=== PATIENT | female | born 1995 | race African-American/Black ===

== ENCOUNTER 2018-11-24 15:40 | Emergency (ER) | payer OTHER ==
[2018-11-24] MEDS ORDERED: LORazepam 2 MG/ML SDV IVPUSH ONE (16:01)
[2018-11-24] MEDS ORDERED: diphenhydrAMINE 50 MG/ML SDV IVPUSH ONE (16:01)
[2018-11-24] MEDS ORDERED: Sodium Chloride 0.9% 1,000 ML IV ONE (16:01)
[2018-11-24] MEDS ORDERED: Promethazine 25 MG/ML SDV IM ONE (16:02)
--- NOTE | 2018-11-24 16:03 | EDM.PDOC ---
ED HPI GENERAL MEDICAL PROBLEM - General Chief Complaint: ENT Problem Stated Complaint: MIGRAINE Time Seen by Provider: 11/24/18 16:02 Source of Information: Reports: Patient - History of Present Illness INITIAL COMMENTS - FREE TEXT/NARRATIVE: HISTORY AND PHYSICAL: History of present illness: []Patient 17 weeks presents with migraine, she has history of migraine early treated with aspirin unable to take aspirin due to complain of 5 out of 10 right unilateral headache mild nausea consistent with usual headache no fever vomiting chills sweats Review of systems: As per history of present illness and below otherwise all systems reviewed and negative. Past medical history: As per history of present illness and as reviewed below otherwise noncontributory. Surgical history: As per history of present illness and as reviewed below otherwise noncontributory. Social history: No reported history of drug or alcohol abuse. Family history: As per history of present illness and as reviewed below otherwise noncontributory. Physical exam: HEENT: Atraumatic, normocephalic, pupils reactive, negative for conjunctival pallor or scleral icterus, mucous membranes moist, throat clear, neck supple, nontender, trachea midline. Lungs: Clear to auscultation, breath sounds equal bilaterally, chest nontender. Heart: S1S2, regular, negative for clicks, rubs, or JVD. Abdomen: Soft, nondistended, nontender. Negative for masses or hepatosplenomegaly. Negative for costovertebral tenderness. Pelvis: Stable nontender. Genitourinary: Deferred. Rectal: Deferred. Extremities: Atraumatic, negative for cords or calf pain. Neurovascular unremarkable. Neuro: Awake, alert, oriented. Cranial nerves II through XII unremarkable. Cerebellum unremarkable. Motor and sensory unremarkable throughout. Exam nonfocal. Diagnostics: [UA ]Standard OB lab on file this month Therapeutics: [Normal saline Phenergan Benadryl Ativan ] Impression: [ migraine- improved 17 week ] Definitive disposition and diagnosis as appropriate pending reevaluation and review of above. headache Pain Score (Numeric/FACES): 7 - Related Data Allergies Allergy/AdvReac Type Severity Reaction Status Date / Time No Known Allergies Allergy Verified 11/24/18 16:06 Home Meds: Home Meds Pnv No.95/Ferrous Fum/Folic AC [ Caplet] 1 each PO DAILY 11/24/18 [ History] ED ROS GENERAL - Review of Systems Review Of Systems: See Below ED EXAM, GENERAL - Physical Exam Exam: See Below Course - Vital Signs Last Recorded V/S: Last Vital Signs Temp 97.3 F 11/24/18 16:07 Pulse 96 11/24/18 16:07 Resp 18 11/24/18 16:07 BP 117/56 L 11/24/18 16:07 Pulse Ox 97 11/24/18 16:07 - Orders/Labs/Meds Orders: Active Orders 24 hr Category Date Time Status UA RFX ABRAHAM AND CULT IF INDIC [URIN] Stat Lab 11/24/18 16:10 Ordered Sodium Chloride 0.9% [Normal Saline] 1,000 ml Med 11/24/18 16:01 Active IV STAT Medication Orders Sodium Chloride (Normal Saline) 1,000 mls @ 999 mls/hr IV STAT ONE Stop: 11/24/18 17:01 Last Admin: 11/24/18 16:27 Dose: 999 mls/hr Meds: Medications Generic Name Dose Route Start Last Admin Trade Name Freq PRN Reason Stop Dose Admin Sodium Chloride 1,000 mls @ 999 mls/hr 11/24/18 16:01 11/24/18 16:27 Normal Saline IV 11/24/18 17:01 999 mls/hr STAT ONE Administration Discontinued Medications Generic Name Dose Route Start Last Admin Trade Name Freq PRN Reason Stop Dose Admin Diphenhydramine HCl 50 mg 11/24/18 16:01 11/24/18 16:29 Benadryl IVPUSH 11/24/18 16:02 50 mg ONETIME ONE Administration Lorazepam 1 mg 11/24/18 16:01 11/24/18 16:31 Ativan IVPUSH 11/24/18 16:02 1 mg ONETIME ONE Administration Promethazine HCl 25 mg 11/24/18 16:02 11/24/18 16:32 Phenergan IM 11/24/18 16:03 25 mg ONETIME ONE Administration Departure - Departure Time of Disposition: 17:01 Disposition: Home, Self-Care 01 Condition: Good Clinical Impression: Headache - Discharge Information Referrals: PCP,None [Primary Care Provider] - Forms: ED Department Discharge Additional Instructions: No driving after medication Return if symptoms persist or worsen Follow-up with OB as scheduled [facility] [address] [place], [place] [id number] The following information is given to patients seen in the emergency department who are being discharged to home. This information is to outline your options for follow-up care. We provide all patients seen in our emergency department with a follow-up referral. The need for follow-up, as well as the timing and circumstances, are variable depending upon the specifics of your emergency department visit. If you don't have a primary care physician on staff, we will provide you with a referral. We always advise you to contact your personal physician following an emergency department visit to inform them of the circumstance of the visit and for follow-up with them and/or the need for any referrals to a consulting specialist. The emergency department will also refer you to a specialist when appropriate. This referral assures that you have the opportunity for follow-up care with a specialist. All of these measure are taken in an effort to provide you with optimal care, which includes your follow-up. Under all circumstances we always encourage you to contact your private physician who remains a resource for coordinating your care. When calling for follow-up care, please make the office aware that this follow-up is from your recent emergency room visit. If for any reason you are refused follow-up, please contact the [facility] emergency department at and asked to speak to the emergency department charge nurse. - My Orders Last 24 Hours: My Active Orders 11/24/18 16:01 Sodium Chloride 0.9% [Normal Saline] 1,000 ml IV STAT 11/24/18 16:10 UA RFX ABRAHAM AND CULT IF INDIC [URIN] Stat - Assessment/Plan Last 24 Hours: My Active Orders 11/24/18 16:01 Sodium Chloride 0.9% [Normal Saline] 1,000 ml IV STAT 11/24/18 16:10 UA RFX ABRAHAM AND CULT IF INDIC [URIN] Stat
== END 2018-11-24 17:55 | disposition home or self-care (01) ==
LOC: MW.ED 15:40
DX: O99.352 Diseases of the nervous system complicating pregnancy, second trimester (principal); G43.909 Migraine, unspecified, not intractable, without status migrainosus; Z3A.17 17 weeks gestation of pregnancy
CPT/HCPCS: 81001; 87086; 96361; 96372; 96374; 96375; 99284; J1200; J2060; J2550; J7040; 99283

== ENCOUNTER 2018-12-19 06:21 | Emergency (ER) | payer SELFPAY ==
[2018-12-19] MEDS ORDERED: Sodium Chloride 0.9% 1,000 ML IV ONE (06:45)
--- NOTE | 2018-12-19 06:46 | EDM.PDOC ---
ED HPI GENERAL MEDICAL PROBLEM - General Chief Complaint: Cardiovascular Problem Stated Complaint: HEART RATE HIGH, 21 WEEKS Time Seen by Provider: 12/19/18 06:44 - History of Present Illness INITIAL COMMENTS - FREE TEXT/NARRATIVE: HISTORY AND PHYSICAL: History of present illness: Patient's 23-year-old black female was approximately 21 weeks presents with concern of palpitations but no chest pain abdominal pain abdominal cramping vaginal bleeding discharge or other concerns she denies shortness of breath. Review of systems: As per history of present illness and below otherwise all systems reviewed and negative. Past medical history: As per history of present illness and as reviewed below otherwise noncontributory. Surgical history: As per history of present illness and as reviewed below otherwise noncontributory. Social history: No reported history of drug or alcohol abuse. Family history: As per history of present illness and as reviewed below otherwise noncontributory. Physical exam: HEENT: Atraumatic, normocephalic, pupils reactive, negative for conjunctival pallor or scleral icterus, mucous membranes moist, throat clear, neck supple, nontender, trachea midline. Lungs: Clear to auscultation, breath sounds equal bilaterally, chest nontender. Heart: S1S2, regular, negative for clicks, rubs, or JVD. Abdomen: Soft, abdomen with gravid uterus consistent with dates Negative for masses or hepatosplenomegaly. Negative for costovertebral tenderness. Pelvis: Stable nontender. Genitourinary: Deferred. Rectal: Deferred. Extremities: Atraumatic, negative for cords or calf pain. Neurovascular unremarkable. Neuro: Awake, alert, oriented. Cranial nerves II through XII unremarkable. Cerebellum unremarkable. Motor and sensory unremarkable throughout. Exam nonfocal. Diagnostics: CBC CMP EKG heart tones Therapeutics: monitoring tech 1 L saline Impression: 1 palpitations #2 second trimester Definitive disposition and diagnosis as appropriate pending reevaluation and review of above. no pain Pain Score (Numeric/FACES): 0 - Related Data Allergies Allergy/AdvReac Type Severity Reaction Status Date / Time No Known Allergies Allergy Verified 12/19/18 06:26 Home Meds: Home Meds Pnv No.95/Ferrous Fum/Folic AC [ Caplet] 1 each PO DAILY 11/24/18 [ History] Past Medical History - Past Health History Medical/Surgical History: Denies Medical/Surgical History HEENT History: Reports: None Cardiovascular History: Reports: None Respiratory History: Reports: None Gastrointestinal History: Reports: None Genitourinary History: Reports: None MEDICAL CARE EVALUATION SPECIALIST History: Reports: None Musculoskeletal History: Reports: None Neurological History: Reports: None Psychiatric History: Reports: None Endocrine/Metabolic History: Reports: None Hematologic History: Reports: None Immunologic History: Reports: None Oncologic (Cancer) History: Reports: None Dermatologic History: Reports: None - Infectious Disease History Infectious Disease History: Reports: Chicken Pox - Past Surgical History Head Surgeries/Procedures: Reports: None Social & Family History - Family History Family Medical History: Noncontributory - Tobacco Use Smoking Status *Q: Never Smoker - Recreational Drug Use Recreational Drug Use: No ED ROS GENERAL - Review of Systems Review Of Systems: ROS reveals no pertinent complaints other than HPI. ED EXAM, GENERAL - Physical Exam Exam: See Below (dictation) Course - Vital Signs Last Recorded V/S: Last Vital Signs Temp 36.6 C 12/19/18 06:27 Pulse 103 H 12/19/18 06:27 Resp 20 12/19/18 06:27 BP 135/67 12/19/18 06:27 Pulse Ox 98 12/19/18 06:27 - Orders/Labs/Meds Orders: Active Orders 24 hr Category Date Time Status EKG Documentation Completion [RC] STAT Care 12/19/18 06:35 Active Heart Tones [RC] ASDIRECTED Care 12/19/18 06:36 Active Sodium Chloride 0.9% [Normal Saline] 1,000 ml Med 12/19/18 06:45 Active IV .Bolus Medication Orders Sodium Chloride (Normal Saline) 1,000 mls @ 999 mls/hr IV .Bolus ONE Stop: 12/19/18 07:45 Last Admin: 12/19/18 07:01 Dose: 999 mls/hr Labs: Laboratory Tests 12/19/18 12/19/18 Range/Units 06:42 06:42 WBC 8.20 (4.0-11.0) K/uL RBC 3.92 L (4.30-5.90) M/uL Hgb 10.1 L (12.0-16.0) g/dL Hct 32.0 L (36.0-46.0) % MCV 81.6 (80.0-98.0) fL MCH 25.8 L (27.0-32.0) pg MCHC 31.6 (31.0-37.0) g/dL RDW Std Deviation 45.4 (28.0-62.0) fl RDW Coeff of Aquiles 15 (11.0-15.0) % Plt Count 279 (150-400) K/uL MPV 9.60 (7.40-12.00) fL Neut % (Auto) 59.2 (48.0-80.0) % Lymph % (Auto) 32.6 (16.0-40.0) % [place] % (Auto) 7.6 (0.0-15.0) % Eos % (Auto) 0.4 (0.0-7.0) % Baso % (Auto) 0.2 (0.0-1.5) % Neut # (Auto) 4.9 (1.4-5.7) K/uL Lymph # (Auto) 2.7 H (0.6-2.4) K/uL [place] # (Auto) 0.6 (0.0-0.8) K/uL Eos # (Auto) 0.0 (0.0-0.7) K/uL Baso # (Auto) 0.0 (0.0-0.1) K/uL Nucleated RBC % 0.2 /100WBC Nucleated RBCs # 0 K/uL Sodium 138 (136-145) mmol/L Potassium 3.5 (3.5-5.1) mmol/L Chloride 104 (98-107) mmol/L Carbon Dioxide 24.6 (21.0-32.0) mmol/L BUN 4 L (7.0-18.0) mg/dL Creatinine 0.5 L (0.6-1.0) mg/dL Est Cr Clr Drug Dosing 157.46 mL/min Estimated GFR (MDRD) > 60.0 ml/min Glucose 114 H (74-106) mg/dL Calcium 8.7 (8.5-10.1) mg/dL Meds: Medications Generic Name Dose Route Start Last Admin Trade Name Freq PRN Reason Stop Dose Admin Sodium Chloride 1,000 mls @ 999 mls/hr 12/19/18 06:45 12/19/18 07:01 Normal Saline IV 12/19/18 07:45 999 mls/hr .Bolus ONE Administration Departure - Departure Time of Disposition: 07:37 Disposition: Home, Self-Care 01 Condition: Good Clinical Impression: Second trimester , Encounter for medical screening examination, Palpitations Referrals: PCP,None [Primary Care Provider] - Forms: ED Department Discharge Additional Instructions: The following information is given to patients seen in the emergency department who are being discharged to home. This information is to outline your options for follow-up care. We provide all patients seen in our emergency department with a follow-up referral. The need for follow-up, as well as the timing and circumstances, are variable depending upon the specifics of your emergency department visit. If you don't have a primary care physician on staff, we will provide you with a referral. We always advise you to contact your personal physician following an emergency department visit to inform them of the circumstance of the visit and for follow-up with them and/or the need for any referrals to a consulting specialist. The emergency department will also refer you to a specialist when appropriate. This referral assures that you have the opportunity for followup care with a specialist. All of these measure are taken in an effort to provide you with optimal care, which includes your followup. Under all circumstances we always encourage you to contact your private physician who remains a resource for coordinating your care. When calling for followup care, please make the office aware that this follow-up is from your recent emergency room visit. If for any reason you are refused follow-up, please contact the [facility] emergency department at and asked to speak to the emergency department charge nurse. Follow-up primary medical doctor and MEDICAL CARE EVALUATION SPECIALIST he has discussed return as needed as discussed - My Orders Last 24 Hours: My Active Orders 12/19/18 06:35 EKG Documentation Completion [RC] STAT 12/19/18 06:36 Heart Tones [RC] ASDIRECTED 12/19/18 06:45 Sodium Chloride 0.9% [Normal Saline] 1,000 ml IV .Bolus - Assessment/Plan Last 24 Hours: My Active Orders 12/19/18 06:35 EKG Documentation Completion [RC] STAT 12/19/18 06:36 Heart Tones [RC] ASDIRECTED 12/19/18 06:45 Sodium Chloride 0.9% [Normal Saline] 1,000 ml IV .Bolus
[2018-12-19 07:00] LABS: BLOOD UREA NITROGEN,BUN 4 mg/dL (7.0-18.0); CARBON DIOXIDE,CO2 24.6 mmol/L (21.0-32.0); CHLORIDE,CL 104 mmol/L (98-107); GLUCOSE RANDOM 114 mg/dL (74-106); POTASSIUM,K 3.5 mmol/L (3.5-5.1); SODIUM,NA 138 mmol/L (136-145)
== END 2018-12-19 07:58 | disposition home or self-care (01) ==
LOC: MW.ED 06:21
DX: O99.89 Other specified diseases and conditions complicating pregnancy, childbirth and the puerperium (principal); R00.2 Palpitations; Z3A.21 21 weeks gestation of pregnancy
CPT/HCPCS: 36415; 80048; 85025; 93005; 96360; 99285; J7040

== ENCOUNTER 2019-05-08 09:31 | Inpatient (IN) | payer SELFPAY ==
[2019-05-08] MEDS ORDERED: Tranexamic Acid 1,000 MG in Sodium Chloride 0.9% 100 ML IV PRN (14:55)
[2019-05-08] MEDS ORDERED: Sodium Chloride 0.9% 2.5 ML Syringe FLUSH PRN (14:55)
[2019-05-08] MEDS ORDERED: Sodium Chloride 0.9% 10 ML SDV IV PRN (14:55)
[2019-05-08] MEDS ORDERED: Carboprost Tromethamine 250 MCG/1 ML Amp IM PRN (14:55)
[2019-05-08] MEDS ORDERED: Misoprostol 25 MCG (1/4 of 100 MCG) Tab VAG PRN (14:55)
[2019-05-08] MEDS ORDERED: Water For Irrigation,Sterile 1,000 ML Container IRR PRN (14:55)
[2019-05-08] MEDS ORDERED: Ondansetron 4 MG/2 ML SDV IVPUSH PRN (14:55)
[2019-05-08] MEDS ORDERED: Terbutaline 1 MG/ML SDV SUBCUT PRN (14:55)
[2019-05-08] MEDS ORDERED: Misoprostol 200 MCG Tab PO PRN (14:55)
[2019-05-08] MEDS ORDERED: Lidocaine 1% 50 ML MDV INJECT PRN (14:55)
[2019-05-08] MEDS ORDERED: Sodium Chloride 0.9% 10 ML Syringe FLUSH PRN (14:55)
[2019-05-08] MEDS ORDERED: Methylergonovine 0.2 MG/1 ML Amp IM PRN (14:55)
[2019-05-08] MEDS ORDERED: Oxytocin/0.9 % Sodium Chloride 30 UNIT/500 ML BAG IV SCH ×2 (15:00)
[2019-05-08] MEDS: Lactated Ringers 1,000 ML IV SCH ×2 (16:20→20:27)
[2019-05-08] MEDS: Butorphanol 1 MG/ML SDV IVPUSH PRN ×2 (21:45→23:29)
--- NOTE | 2019-05-09 02:27 | PCM.PREANE ---
Preanesthetic Assessment - Anesthesia/Transfusion/Family Hx Anesthesia History: No Prior Anesthesia Family History of Anesthesia Reaction: No Transfusion History: No Prior Transfusion(s) - Review of Systems General: No Symptoms Pulmonary: No Symptoms Cardiovascular: No Symptoms Gastrointestinal: No Symptoms Neurological: No Symptoms Other: Reports: None - Physical Assessment Height: 5 ft 5 in Weight: 79.832 kg ASA Class: 2 Mental Status: Alert & Oriented x3 Airway Class: Mallampati = 2 Dentition: Reports: Normal Dentition Thyro-Mental Finger Breadths: 3 Mouth Opening Finger Breadths: 3 ROM/Head Extension: Full Lungs: Clear to Auscultation, Normal Respiratory Effort Cardiovascular: Regular Rate, Regular Rhythm - Lab Values: Laboratory Last Values WBC 9.34 K/uL (4.0-11.0) 05/08/19 16:25 RBC 4.69 M/uL (4.30-5.90) 05/08/19 16:25 Hgb 9.3 g/dL (12.0-16.0) L 05/08/19 16:25 Hct 31.3 % (36.0-46.0) L 05/08/19 16:25 MCV 66.7 fL (80.0-98.0) L 05/08/19 16:25 MCH 19.8 pg (27.0-32.0) L 05/08/19 16:25 MCHC 29.7 g/dL (31.0-37.0) L 05/08/19 16:25 RDW Std Deviation 50.2 fl (28.0-62.0) 05/08/19 16:25 RDW Coeff of Aquiles 22 % (11.0-15.0) H 05/08/19 16:25 Plt Count 208 K/uL (150-400) 05/08/19 16:25 MPV fL (7.40-12.00) 05/08/19 16:25 Blood Type O NEGATIVE 05/08/19 16:25 Antibody Screen NEGATIVE 05/08/19 16:25 Crossmatch See Detail 05/08/19 16:25 - Allergies Allergies/Adverse Reactions: Allergies Allergy/AdvReac Type Severity Reaction Status Date / Time No Known Allergies Allergy Verified 05/08/19 14:36 - Acknowledgements Anesthesia Type Planned: Epidural Pt an Appropriate Candidate for the Planned Anesthesia: Yes Alternatives and Risks of Anesthesia Discussed w Pt/Guardian: Yes Pt/Guardian Understands and Agrees with Anesthesia Plan: Yes PreAnesthesia Questionnaire - Past Health History Medical/Surgical History: Denies Medical/Surgical History HEENT History: Reports: None Cardiovascular History: Reports: None Respiratory History: Reports: None Gastrointestinal History: Reports: GERD Genitourinary History: Reports: None TOWER EQUIPMENT REPAIRER History: Reports: None, : 1 Para: 0 LMP (Approximate): Musculoskeletal History: Reports: None Neurological History: Reports: None Psychiatric History: Reports: None Endocrine/Metabolic History: Reports: None Hematologic History: Reports: Anemia Immunologic History: Reports: None Oncologic (Cancer) History: Reports: None Dermatologic History: Reports: None - Infectious Disease History Infectious Disease History: Reports: Chicken Pox - Past Surgical History Head Surgeries/Procedures: Reports: None - SUBSTANCE USE Smoking Status *Q: Never Smoker Recreational Drug Use History: No - HOME MEDS Home Medications: Home Meds Pnv No.95/Ferrous Fum/Folic AC [ Caplet] 1 each PO DAILY 11/24/18 [ History] - CURRENT (IN HOUSE) MEDS Current Meds: Current Medications Butorphanol Tartrate (Stadol) 1 mg IVPUSH Q1H PRN PRN Reason: Pain Last Admin: 05/08/19 23:29 Dose: 1 mg Carboprost Tromethamine (Hemabate Ds) 250 mcg IM ASDIRECTED PRN PRN Reason: Post Hemorrhage Lactated Ringer's (Ringers, Lactated) 1,000 mls @ 150 mls/hr IV ASDIRECTED DAMIAN Last Admin: 05/08/19 20:27 Dose: 150 mls/hr Oxytocin/Sodium Chloride (Oxytocin 30 Unit/500 Ml-Ns) 30 unit in 500 mls @ 500 mls/hr IV TITRATE DAMIAN Oxytocin/Sodium Chloride (Oxytocin 30 Unit/500 Ml-Ns) 30 unit in 500 mls @ 2 mls/hr IV TITRATE DAMIAN; Protocol Last Titration: 05/09/19 00:35 Dose: 0 munits/min, 0 mls/hr Tranexamic Acid 1,000 mg/ (Sodium Chloride) 110 mls @ 660 mls/hr IV ONETIME PRN PRN Reason: Bleeding Lidocaine HCl (Xylocaine 1%) 50 ml INJECT ONETIME PRN PRN Reason: Laceration repair Methylergonovine Maleate (Methergine) 0.2 mg IM ASDIRECTED PRN PRN Reason: Post Hemorrhage Misoprostol (Cytotec) 200 mcg PO ONETIME PRN PRN Reason: Post Hemorrhage Misoprostol (Cytotec) 25 mcg VAG ONETIME PRN PRN Reason: Cervical Ripening Last Admin: 05/08/19 16:21 Dose: 25 mcg Ondansetron HCl (Zofran) 4 mg IVPUSH Q4H PRN PRN Reason: Nausea/Vomiting Sodium Chloride (Saline Flush) 10 ml FLUSH ASDIRECTED PRN PRN Reason: Keep Vein Open Sodium Chloride (Saline Flush) 2.5 ml FLUSH ASDIRECTED PRN PRN Reason: Keep Vein Open Sodium Chloride (Normal Saline) 10 ml IV ASDIRECTED PRN PRN Reason: IV Use Sterile Water (Sterile Water For Irrigation) 1,000 ml IRR ASDIRECTED PRN PRN Reason: delivery Terbutaline Sulfate (Brethine) 0.25 mg SUBCUT ASDIRECTED PRN PRN Reason: Tacysystole
[2019-05-09] MEDS ORDERED: Bupivicaine/fentaNYL/NS 250 ML ONE (02:28)
[2019-05-09] MEDS ORDERED: fentaNYL 100 MCG/2 ML SDV ONE (02:46)
[2019-05-09] MEDS: Lactated Ringers 1,000 ML IV SCH ×2 (03:56→05:20)
[2019-05-09] MEDS ORDERED: Acetaminophen 500 MG Tab PO PRN (09:31)
[2019-05-09] MEDS ORDERED: Lanolin 100% Cream 7 GM Tube TOP PRN (09:31)
[2019-05-09] MEDS ORDERED: Ibuprofen 400 MG Tab PO PRN (09:31)
[2019-05-09] MEDS ORDERED: Benzocaine/Menthol 20%-0.5% Spray 78 GM Cannister TOP PRN (09:31)
[2019-05-09] MEDS ORDERED: Docusate Sodium 100 MG Cap PO PRN (09:31)
[2019-05-09] MEDS ORDERED: oxyCODONE 5 MG Tab PO PRN (09:31)
[2019-05-09] MEDS ORDERED: Bisacodyl 10 MG Supp RECTAL PRN (09:31)
--- NOTE | 2019-05-09 09:40 | PCM.DEL ---
L & D Note - General Info Date of Service: 05/09/19 - Delivery Note Labor: Augmented by Oxytocin Cervical Ripening Method: Laminaria, Misoprostil Delivery Outcome: Livebirth Delivery Method: Spontaneous Vaginal Delivery-Single Presentation: Left Occiput Anterior (MONA) Nuchal Cord: Present, Reduced Anesthesia Type: Epidural Anesthetic: Lidocaine (Xylocaine) 1% Plain Local Anesthetic Volume: 5cc Episiotomy Type: Left Mediolateral Laceration: 3rd Degree Suture type: Vicryl, Other (Vicryl 2.0 to approximate sphincter and Monocryl 2.0 for perineal body ) Suture size: 2-0 Placenta: Intact Cord: 3 Vessels Estimated Blood Loss: 300 Resuscitation Needed: Yes [place]: Suctioned, Stimulated, Warmed, Warmer Used Score 1 min: 4 Score 5 min: 6 Score 10 min: 7 Delivery Comments (Free Text/Narrative):: Live male delivered at 838am , 4/6/7 weight 4840g 3rd degree laceration repaired in layers rectal sphincter repaired with 2.0 vicryl Perineal body repaired with 2.0 monocryl - General Info Date of Service: 05/09/19 - Patient Data Weight - Most Recent: 79.832 kg Lab Results Last 24 Hours: Laboratory Results - last 24 hr 05/08/19 05/08/19 Range/Units 16:25 16:25 WBC 9.34 (4.0-11.0) K/uL RBC 4.69 (4.30-5.90) M/uL Hgb 9.3 L (12.0-16.0) g/dL Hct 31.3 L (36.0-46.0) % MCV 66.7 L (80.0-98.0) fL MCH 19.8 L (27.0-32.0) pg MCHC 29.7 L (31.0-37.0) g/dL RDW Std Deviation 50.2 (28.0-62.0) fl RDW Coeff of Aquiles 22 H (11.0-15.0) % Plt Count 208 (150-400) K/uL MPV (7.40-12.00) fL Blood Type O NEGATIVE Antibody Screen NEGATIVE Crossmatch See Detail Med Orders - Current: Current Medications Acetaminophen (Tylenol Extra Strength) 500 mg PO Q4H PRN PRN Reason: Pain Acetaminophen (Tylenol Extra Strength) 1,000 mg PO Q4H PRN PRN Reason: Pain Benzocaine/Menthol (Dermoplast Pain Relief 20%-0.5% [place]) 78 gm TOP ASDIRECTED PRN PRN Reason: Perineal Comfort Measure Bisacodyl (Dulcolax) 10 mg RECTAL ONETIME PRN PRN Reason: Constipation Butorphanol Tartrate (Stadol) 1 mg IVPUSH Q1H PRN PRN Reason: Pain Last Admin: 05/08/19 23:29 Dose: 1 mg Carboprost Tromethamine (Hemabate Ds) 250 mcg IM ASDIRECTED PRN PRN Reason: Post Hemorrhage Docusate Sodium (Colace) 100 mg PO BID PRN PRN Reason: Constipation Emollient Ointment (Lansinoh Hpa) 0 gm TOP ASDIRECTED PRN PRN Reason: Sore Nipples Lactated Ringer's (Ringers, Lactated) 1,000 mls @ 150 mls/hr IV ASDIRECTED DAMIAN Last Admin: 05/09/19 05:20 Dose: 150 mls/hr Oxytocin/Sodium Chloride (Oxytocin 30 Unit/500 Ml-Ns) 30 unit in 500 mls @ 500 mls/hr IV TITRATE DAMIAN Oxytocin/Sodium Chloride (Oxytocin 30 Unit/500 Ml-Ns) 30 unit in 500 mls @ 2 mls/hr IV TITRATE [facility]; Protocol Last Titration: 05/09/19 06:19 Dose: 0 munits/min, 0 mls/hr Tranexamic Acid 1,000 mg/ (Sodium Chloride) 110 mls @ 660 mls/hr IV ONETIME PRN PRN Reason: Bleeding Ibuprofen (Motrin) 400 mg PO Q4H PRN PRN Reason: Pain Ibuprofen (Motrin) 800 mg PO Q6H PRN PRN Reason: Pain Lidocaine HCl (Xylocaine 1%) 50 ml INJECT ONETIME PRN PRN Reason: Laceration repair Methylergonovine Maleate (Methergine) 0.2 mg IM ASDIRECTED PRN PRN Reason: Post Hemorrhage Misoprostol (Cytotec) 200 mcg PO ONETIME PRN PRN Reason: Post Hemorrhage Misoprostol (Cytotec) 25 mcg VAG ONETIME PRN PRN Reason: Cervical Ripening Last Admin: 05/08/19 16:21 Dose: 25 mcg Ondansetron HCl (Zofran) 4 mg IVPUSH Q4H PRN PRN Reason: Nausea/Vomiting Oxycodone HCl (Oxycodone) 5 mg PO Q2H PRN PRN Reason: Pain Sodium Chloride (Saline Flush) 10 ml FLUSH ASDIRECTED PRN PRN Reason: Keep Vein Open Sodium Chloride (Saline Flush) 2.5 ml FLUSH ASDIRECTED PRN PRN Reason: Keep Vein Open Sodium Chloride (Normal Saline) 10 ml IV ASDIRECTED PRN PRN Reason: IV Use Sterile Water (Sterile Water For Irrigation) 1,000 ml IRR ASDIRECTED PRN PRN Reason: delivery Terbutaline Sulfate (Brethine) 0.25 mg SUBCUT ASDIRECTED PRN PRN Reason: Tacysystole Last Admin: 05/09/19 02:10 Dose: 0.25 mg Witch Anne (Tucks) 1 pad TOP ASDIRECTED PRN PRN Reason: comfort care Discontinued Medications Fentanyl (Sublimaze) Confirm Administered Dose 100 mcg .ROUTE .STK-MED ONE Stop: 05/09/19 02:47 Fentanyl/Bupivacaine HCl (Fentanyl/Bupivacaine/Ns 2 Mcg-0.125% 250 Ml) Confirm Administered Dose 250 mls @ as directed .ROUTE .BiTaksi-MED ONE Stop: 05/09/19 02:29 - Problem List & Annotations (1) Vaginal delivery SNOMED Code(s): 072729309 Code(s): O80 - ENCOUNTER FOR FULL-TERM UNCOMPLICATED DELIVERY Status: Acute Current Visit: Yes (2) Third degree laceration of perineum during delivery, SNOMED Code(s): 544095937 Code(s): O70.20 - THIRD DEGREE PERINEAL LACERATION DURING DELIVERY, UNSP Status: Acute Current Visit: Yes - Problem List Review Problem List Initiated/Reviewed/Updated: Yes - My Orders Last 24 Hours: My Active Orders 05/08/19 14:55 Butorphanol [Stadol] 1 mg IVPUSH Q1H PRN Carboprost Tromethamine [Hemabate DS] 250 mcg IM ASDIRECTED PRN Lidocaine 1% [Xylocaine 1%] 50 ml INJECT ONETIME PRN Methylergonovine [Methergine] 0.2 mg IM ASDIRECTED PRN Ondansetron [Zofran] 4 mg IVPUSH Q4H PRN Sodium Chloride 0.9% [Normal Saline] 10 ml IV ASDIRECTED PRN Sodium Chloride 0.9% [Saline Flush] 10 ml FLUSH ASDIRECTED PRN Sodium Chloride 0.9% [Saline Flush] 2.5 ml FLUSH ASDIRECTED PRN Terbutaline [Brethine] 0.25 mg SUBCUT ASDIRECTED PRN Tranexamic Acid [Cyklokapron] 1,000 mg Sodium Chloride 0.9% [Normal Saline] 100 ml IV ONETIME Water For Irrigation,Sterile [Sterile Water for Irrigation] 1,000 ml IRR ASDIRECTED PRN miSOPROStoL [Cytotec] 200 mcg PO ONETIME PRN miSOPROStoL [Cytotec] 25 mcg VAG ONETIME PRN 05/08/19 14:56 Patient Status [ADT] Routine Bedrest Bathroom Privileges [RC] ASDIRECTED Communication Order [RC] ASDIRECTED Communication Order [RC] ASDIRECTED Communication Order [RC] ASDIRECTED Heart Tones [RC] CONTINUOUS Non Stress Test [RC] PER UNIT ROUTINE May Shower [RC] ASDIRECTED Notify Provider [RC] PRN Notify Provider [RC] PRN Notify Provider [RC] PRN Notify Provider [RC] STAT Oxygen Therapy [RC] ASDIRECTED Up ad Dorcas [RC] ASDIRECTED Vaginal Exam [RC] PRN Vital Signs [RC] PER UNIT ROUTINE Vital Signs [RC] PER UNIT ROUTINE Peripheral IV Insertion Adult [OM.PC] Routine 05/08/19 15:00 Lactated Ringers [Ringers, Lactated] 1,000 ml IV ASDIRECTED Oxytocin/0.9 % Sodium Chloride [Oxytocin 30 Unit/500 ML-NS] 30 unit in 500 ml IV TITRATE Oxytocin/0.9 % Sodium Chloride [Oxytocin 30 Unit/500 ML-NS] 30 unit in 500 ml IV TITRATE Medication Administration Instruction [OM.PC] Q3H 05/08/19 16:25 RPR (SYPHILIS SERO) W/ RFLX [REF] Routine TYPE AND SCREEN [BBK] Routine 05/08/19 Dinner Clear Liquid Diet [DIET] 05/09/19 09:31 Patient Status [ADT] Routine May Shower [RC] ASDIRECTED Up ad Dorcas [RC] ASDIRECTED Vital Signs [RC] PER UNIT ROUTINE BLOOD GAS VENOUS UMBILICAL [BG] Stat RHIG WORKUP, [BBK] Routine Acetaminophen [Tylenol Extra Strength] 1,000 mg PO Q4H PRN Acetaminophen [Tylenol Extra Strength] 500 mg PO Q4H PRN Benzocaine/Menthol [Dermoplast Pain Relief 20%-0.5% Bow] 78 gm TOP ASDIRECTED PRN Docusate Sodium [Colace] 100 mg PO BID PRN Ibuprofen [Motrin] 400 mg PO Q4H PRN Ibuprofen [Motrin] 800 mg PO Q6H PRN Lanolin [Lansinoh HPA] See Dose Instructions TOP ASDIRECTED PRN bisacodyL [Dulcolax] 10 mg RECTAL ONETIME PRN oxyCODONE 5 mg PO Q2H PRN witch Anne [Tucks] 1 pad TOP ASDIRECTED PRN Assess Lochia [WOMSER] Per Unit Routine Assess Uterine Involution [WOMSER] Per Unit Routine Peripheral IV Discontinue [OM.PC] Routine Resuscitation Status Routine 05/09/19 21:00 Docusate Sodium [Colace] 100 mg PO BID 05/09/19 Lunch Low Fiber Diet [DIET] 05/10/19 05:11 HEMOGLOBIN/HEMATOCRIT,HH [HEME] Timed - Assessment Assessment:: 24yo P1 s/p PPD 0 , 3rd degree laceration Plan Colace Low residue diet
[2019-05-09] MEDS: Ibuprofen 800 MG Tab PO PRN ×2 (10:16→20:27)
[2019-05-09] MEDS: Acetaminophen 500 MG Tab PO PRN ×2 (10:17→20:29)
[2019-05-09] MEDS: Witch Hazel Medicated Pads 40/Jar TOP PRN (20:29)
[2019-05-09] MEDS: Docusate Sodium 100 MG Cap PO SCH (20:29)
[2019-05-10] MEDS: Acetaminophen 500 MG Tab PO PRN ×4 (00:28→20:50)
--- NOTE | 2019-05-10 04:02 | OR ---
SURGEON: LEONARD CRAWFORD DATE OF PROCEDURE: 05/09/2019 PREOPERATIVE DIAGNOSIS: A 24-year-old G1, P0, at 41 weeks and 1 day, admitted for induction of labor, Rh negative. POSTOPERATIVE DIAGNOSIS: A 24-year-old G1, P0, at 41 weeks and 1 day, admitted for induction of labor, Rh negative. Third degree laceration PROCEDURE: Vaginal delivery complicated by shoulder dystocia, repair of third-degree vaginal laceration. ESTIMATED BLOOD LOSS: 300. IV FLUID: Pitocin running. FINDINGS: Live male delivered at 8:38 a.m. scores are 4, 6, 7. Weight is 4840 g. BRIEF HISTORY ABOUT THE PATIENT: She is a 24-year-old G1, P0, at 41 weeks and 1 day, who came in for induction of labor secondary to postdates. She was also Rh negative. Received RhoGAM in the . DESCRIPTION OF PROCEDURE: Induction was started with Cytotec. After Cytotec, she received Pitocin. After Pitocin, then AROM was done, and IUPC was also placed. The patient was noted to have some decelerations and tachysystole, so Pitocin was held. Terbutaline was given. Tracing recovered, but the patient had in and out category 2 heart tracing that improved with positioning and oxygen. Essentially, the patient became fully dilated. With the patient being fully dilated, she was encouraged to push. With good pushing effort, she delivered the head. Pitocin was noted. Part of the procedure was repair of left lateral episiotomy, which extended to a third-degree laceration. When was evident, she was noted to have a tight introitus, so the perineum was caught with the scissors. After injection of anesthesia, left mediolateral episiotomy was caught with delivery of the head. There was turtle sign noted, so suprapubic maneuver was done and McRobert's was done. Body was delivered. Placed on maternal abdomen. Cord clamping was observed. Placenta was delivered via controlled cord traction. Cord blood gases were obtained. The perineum was inspected. A third-degree laceration was noted, so the anal sphincter was brought together by an 0 Vicryl in overlapping layer. The rectal and anal skin also had a tear, which was repaired. Attention was then paid to the vaginal laceration, which was repaired in layer approximating the muscles and the perineal body together with 0 Monocryl. After this, a small ureteral left labial laceration was noted, which was approximated with 1 interrupted stitch. After this, the patient was inspected. Hemostasis was noted. The patient tolerated the procedure well and left Labor and Delivery Room in stable condition. EDIL DIAZ /[id number] TINY
[2019-05-10] MEDS: Docusate Sodium 100 MG Cap PO SCH ×2 (08:37→20:50)
--- NOTE | 2019-05-10 09:26 | PCM.PNPP ---
- General Info Date of Service: 05/10/19 Admission Dx/Problem (Free Text): Patient doing well. Reports perineum is sore, but pain controlled with medication. Voiding spontaneously. Minimal lochia. . Functional Status: Reports: Pain Controlled, Tolerating Diet, Ambulating, Urinating - Review of Systems General: Reports: No Symptoms HEENT: Reports: No Symptoms Pulmonary: Reports: No Symptoms Cardiovascular: Reports: No Symptoms Gastrointestinal: Reports: No Symptoms Genitourinary: Reports: No Symptoms Musculoskeletal: Reports: No Symptoms Skin: Reports: No Symptoms Neurological: Reports: No Symptoms Psychiatric: Reports: No Symptoms - Patient Data Vital Signs - Most Recent: Last Vital Signs Temp 36.7 C 05/10/19 08:00 Pulse 82 05/10/19 04:41 Resp 17 05/10/19 04:41 BP 100/64 05/10/19 04:41 Pulse Ox 100 05/10/19 04:41 Weight - Most Recent: 79.832 kg Lab Results - Last 24 Hours: Laboratory Results - last 24 hr 05/09/19 05/09/19 05/09/19 Range/Units 08:38 08:38 10:01 Hgb (12.0-16.0) g/dL Hct (36.0-46.0) % Cord ABG pH 7.093 L (7.18-7.38) Cord ABG Base Excess -12 L (-10--2) Cord VBG pH 7.139 L (7.25-7.45) Cord VBG Base Excess -13 L (-10--2) Screen NEGATIVE (NEGATIVE) RhIG Candidate? YES Rhogam Indicated YES, BABY RH POS H 05/10/19 Range/Units 06:02 Hgb 7.2 L (12.0-16.0) g/dL Hct 25.0 L (36.0-46.0) % Cord ABG pH (7.18-7.38) Cord ABG Base Excess (-10--2) Cord VBG pH (7.25-7.45) Cord VBG Base Excess (-10--2) Screen (NEGATIVE) RhIG Candidate? Rhogam Indicated Med Orders - Current: Current Medications Acetaminophen (Tylenol Extra Strength) 500 mg PO Q4H PRN PRN Reason: Pain Acetaminophen (Tylenol Extra Strength) 1,000 mg PO Q4H PRN PRN Reason: Pain Last Admin: 05/10/19 08:38 Dose: 1,000 mg Benzocaine/Menthol (Dermoplast Pain Relief 20%-0.5% [place]) 78 gm TOP ASDIRECTED PRN PRN Reason: Perineal Comfort Measure Bisacodyl (Dulcolax) 10 mg RECTAL ONETIME PRN PRN Reason: Constipation Butorphanol Tartrate (Stadol) 1 mg IVPUSH Q1H PRN PRN Reason: Pain Last Admin: 05/08/19 23:29 Dose: 1 mg Carboprost Tromethamine (Hemabate Ds) 250 mcg IM ASDIRECTED PRN PRN Reason: Post Hemorrhage Docusate Sodium (Colace) 100 mg PO BID PRN PRN Reason: Constipation Last Admin: 05/09/19 10:16 Dose: 100 mg Docusate Sodium (Colace) 100 mg PO BID DAMIAN Last Admin: 05/10/19 08:37 Dose: 100 mg Emollient Ointment (Lansinoh Hpa) 0 gm TOP ASDIRECTED PRN PRN Reason: Sore Nipples Lactated Ringer's (Ringers, Lactated) 1,000 mls @ 150 mls/hr IV ASDIRECTED DAMIAN Last Admin: 05/09/19 05:20 Dose: 150 mls/hr Oxytocin/Sodium Chloride (Oxytocin 30 Unit/500 Ml-Ns) 30 unit in 500 mls @ 500 mls/hr IV TITRATE DAMIAN Oxytocin/Sodium Chloride (Oxytocin 30 Unit/500 Ml-Ns) 30 unit in 500 mls @ 2 mls/hr IV TITRATE DAMIAN; Protocol Last Titration: 05/09/19 09:15 Dose: 250 munits/min, 250 mls/hr Tranexamic Acid 1,000 mg/ (Sodium Chloride) 110 mls @ 660 mls/hr IV ONETIME PRN PRN Reason: Bleeding Ibuprofen (Motrin) 400 mg PO Q4H PRN PRN Reason: Pain Ibuprofen (Motrin) 800 mg PO Q6H PRN PRN Reason: Pain Last Admin: 05/09/19 20:27 Dose: 800 mg Lidocaine HCl (Xylocaine 1%) 50 ml INJECT ONETIME PRN PRN Reason: Laceration repair Last Admin: 05/09/19 08:32 Dose: 50 ml Methylergonovine Maleate (Methergine) 0.2 mg IM ASDIRECTED PRN PRN Reason: Post Hemorrhage Misoprostol (Cytotec) 200 mcg PO ONETIME PRN PRN Reason: Post Hemorrhage Misoprostol (Cytotec) 25 mcg VAG ONETIME PRN PRN Reason: Cervical Ripening Last Admin: 05/08/19 16:21 Dose: 25 mcg Ondansetron HCl (Zofran) 4 mg IVPUSH Q4H PRN PRN Reason: Nausea/Vomiting Oxycodone HCl (Oxycodone) 5 mg PO Q2H PRN PRN Reason: Pain Last Admin: 05/10/19 01:22 Dose: 5 mg Sodium Chloride (Saline Flush) 10 ml FLUSH ASDIRECTED PRN PRN Reason: Keep Vein Open Sodium Chloride (Saline Flush) 2.5 ml FLUSH ASDIRECTED PRN PRN Reason: Keep Vein Open Sodium Chloride (Normal Saline) 10 ml IV ASDIRECTED PRN PRN Reason: IV Use Sterile Water (Sterile Water For Irrigation) 1,000 ml IRR ASDIRECTED PRN PRN Reason: delivery Terbutaline Sulfate (Brethine) 0.25 mg SUBCUT ASDIRECTED PRN PRN Reason: Tacysystole Last Admin: 05/09/19 02:10 Dose: 0.25 mg Witch Anne (Tucks) 1 pad TOP ASDIRECTED PRN PRN Reason: comfort care Last Admin: 05/09/19 20:29 Dose: 1 pad Discontinued Medications Fentanyl (Sublimaze) Confirm Administered Dose 100 mcg .ROUTE .STK-MED ONE Stop: 05/09/19 02:47 Fentanyl/Bupivacaine HCl (Fentanyl/Bupivacaine/Ns 2 Mcg-0.125% 250 Ml) Confirm Administered Dose 250 mls @ as directed .ROUTE .STK-MED ONE Stop: 05/09/19 02:29 - Interaction Disposition, : [place] at Bedside Infant Feeding: Attempted ; Nursed Fair/Poor Support Person: Significant Other - Recovery Exam Fundal Tone: Firm Fundal Level: 1 Fingerbreadths Below Umbilicus Fundal Placement: Midline Lochia Amount: Small Lochia Color: Rubra/Red Bladder Status: Voiding - Exam General: Alert, Oriented Neck: Supple Lungs: Clear to Auscultation Cardiovascular: Regular Rate, Regular Rhythm GI/Abdominal Exam: Soft, Non-Tender Extremities: Non-Tender Skin: Warm, Dry, Intact Neurological: No New Focal Deficit Psy/Mental Status: Alert, Normal Affect, Normal Mood - Problem List & Annotations (1) Third degree laceration of perineum during delivery, SNOMED Code(s): 654376094 Code(s): O70.20 - THIRD DEGREE PERINEAL LACERATION DURING DELIVERY, UNSP Status: Acute Current Visit: Yes (2) Vaginal delivery SNOMED Code(s): 258483567 Code(s): O80 - ENCOUNTER FOR FULL-TERM UNCOMPLICATED DELIVERY Status: Acute Current Visit: Yes - Problem List Review Problem List Initiated/Reviewed/Updated: Yes - Assessment Assessment:: 24yo P1 s/p , PPD#1. - Plan Plan:: 1. 3rd degree laceration - continue stool softener and pain medication. 2. Anemia - 2/2 acute blood loss. Repeat H&H tomorrow AM. 3. Dispo - likely discharge home tomorrow.
--- NOTE | 2019-05-10 09:39 | PCM48HPAN ---
Post Anesthesia Note - EVALUATION WITHIN 48HRS OF ANESTHETIC Vital Signs in Normal Range: Yes Patient Participated in Evaluation: Yes Respiratory Function Stable: Yes Airway Patent: Yes Cardiovascular Function Stable: Yes Hydration Status Stable: Yes Pain Control Satisfactory: Yes Nausea and Vomiting Control Satisfactory: Yes Mental Status Recovered: Yes Vital Signs: Last Vital Signs Temp 36.7 C 05/10/19 08:00 Pulse 78 05/10/19 07:35 Resp 18 05/10/19 07:35 BP 130/74 05/10/19 07:35 Pulse Ox 96 05/10/19 07:35 - COMMENTS/OBSERVATIONS Free Text/Narrative:: Patient doing well after epidural and delivery. No complaints and no anesthesia complications noted.
[2019-05-10] MEDS: Ibuprofen 800 MG Tab PO PRN (10:32)
[2019-05-11] MEDS: Acetaminophen 500 MG Tab PO PRN ×2 (01:57→07:56)
[2019-05-11] MEDS: Docusate Sodium 100 MG Cap PO SCH (08:01)
--- NOTE | 2019-05-11 12:22 | PCM.PNPP ---
- General Info Date of Service: 05/11/19 Admission Dx/Problem (Free Text): Patient doing well. Reports perineum is sore, but pain controlled with medication. Voiding spontaneously. Minimal lochia. . Functional Status: Reports: Pain Controlled, Tolerating Diet, Ambulating, Urinating - Review of Systems General: Reports: No Symptoms HEENT: Reports: No Symptoms Pulmonary: Reports: No Symptoms Cardiovascular: Reports: No Symptoms Gastrointestinal: Reports: No Symptoms Genitourinary: Reports: No Symptoms Musculoskeletal: Reports: No Symptoms Skin: Reports: No Symptoms Neurological: Reports: No Symptoms Psychiatric: Reports: No Symptoms - Patient Data Vital Signs - Most Recent: Last Vital Signs Temp 36.4 C 05/11/19 08:25 Pulse 98 05/11/19 08:25 Resp 16 05/11/19 08:25 BP 120/77 05/11/19 08:25 Pulse Ox 100 05/11/19 08:25 Weight - Most Recent: 79.832 kg I&O - Last 24 Hours: Intake & Output 05/10/19 05/11/19 05/11/19 21:59 06:59 14:59 Intake Total Balance Lab Results - Last 24 Hours: Laboratory Results - last 24 hr 05/09/19 05/11/19 Range/Units 10:01 06:00 Hgb 7.6 L (12.0-16.0) g/dL Hct 26.1 L (36.0-46.0) % Screen NEGATIVE (NEGATIVE) RhIG Candidate? YES Rhogam Indicated YES, BABY RH POS H Med Orders - Current: Current Medications Acetaminophen (Tylenol Extra Strength) 500 mg PO Q4H PRN PRN Reason: Pain Acetaminophen (Tylenol Extra Strength) 1,000 mg PO Q4H PRN PRN Reason: Pain Last Admin: 05/11/19 07:56 Dose: 1,000 mg Benzocaine/Menthol (Dermoplast Pain Relief 20%-0.5% [place]) 78 gm TOP ASDIRECTED PRN PRN Reason: Perineal Comfort Measure Bisacodyl (Dulcolax) 10 mg RECTAL ONETIME PRN PRN Reason: Constipation Butorphanol Tartrate (Stadol) 1 mg IVPUSH Q1H PRN PRN Reason: Pain Last Admin: 05/08/19 23:29 Dose: 1 mg Carboprost Tromethamine (Hemabate Ds) 250 mcg IM ASDIRECTED PRN PRN Reason: Post Hemorrhage Docusate Sodium (Colace) 100 mg PO BID PRN PRN Reason: Constipation Last Admin: 05/09/19 10:16 Dose: 100 mg Docusate Sodium (Colace) 100 mg PO BID DAMIAN Last Admin: 05/11/19 08:01 Dose: 100 mg Emollient Ointment (Lansinoh Hpa) 0 gm TOP ASDIRECTED PRN PRN Reason: Sore Nipples Lactated Ringer's (Ringers, Lactated) 1,000 mls @ 150 mls/hr IV ASDIRECTED DAMIAN Last Admin: 05/09/19 05:20 Dose: 150 mls/hr Oxytocin/Sodium Chloride (Oxytocin 30 Unit/500 Ml-Ns) 30 unit in 500 mls @ 500 mls/hr IV TITRATE DAMIAN Oxytocin/Sodium Chloride (Oxytocin 30 Unit/500 Ml-Ns) 30 unit in 500 mls @ 2 mls/hr IV TITRATE DAMIAN; Protocol Last Titration: 05/09/19 09:15 Dose: 250 munits/min, 250 mls/hr Tranexamic Acid 1,000 mg/ (Sodium Chloride) 110 mls @ 660 mls/hr IV ONETIME PRN PRN Reason: Bleeding Ibuprofen (Motrin) 400 mg PO Q4H PRN PRN Reason: Pain Ibuprofen (Motrin) 800 mg PO Q6H PRN PRN Reason: Pain Last Admin: 05/10/19 10:32 Dose: 800 mg Lidocaine HCl (Xylocaine 1%) 50 ml INJECT ONETIME PRN PRN Reason: Laceration repair Last Admin: 05/09/19 08:32 Dose: 50 ml Methylergonovine Maleate (Methergine) 0.2 mg IM ASDIRECTED PRN PRN Reason: Post Hemorrhage Misoprostol (Cytotec) 200 mcg PO ONETIME PRN PRN Reason: Post Hemorrhage Misoprostol (Cytotec) 25 mcg VAG ONETIME PRN PRN Reason: Cervical Ripening Last Admin: 05/08/19 16:21 Dose: 25 mcg Ondansetron HCl (Zofran) 4 mg IVPUSH Q4H PRN PRN Reason: Nausea/Vomiting Oxycodone HCl (Oxycodone) 5 mg PO Q2H PRN PRN Reason: Pain Last Admin: 05/10/19 01:22 Dose: 5 mg Sodium Chloride (Saline Flush) 10 ml FLUSH ASDIRECTED PRN PRN Reason: Keep Vein Open Sodium Chloride (Saline Flush) 2.5 ml FLUSH ASDIRECTED PRN PRN Reason: Keep Vein Open Sodium Chloride (Normal Saline) 10 ml IV ASDIRECTED PRN PRN Reason: IV Use Sterile Water (Sterile Water For Irrigation) 1,000 ml IRR ASDIRECTED PRN PRN Reason: delivery Terbutaline Sulfate (Brethine) 0.25 mg SUBCUT ASDIRECTED PRN PRN Reason: Tacysystole Last Admin: 05/09/19 02:10 Dose: 0.25 mg Witch Anne (Tucks) 1 pad TOP ASDIRECTED PRN PRN Reason: comfort care Last Admin: 05/09/19 20:29 Dose: 1 pad Discontinued Medications Fentanyl (Sublimaze) Confirm Administered Dose 100 mcg .ROUTE .STK-MED ONE Stop: 05/09/19 02:47 Fentanyl/Bupivacaine HCl (Fentanyl/Bupivacaine/Ns 2 Mcg-0.125% 250 Ml) Confirm Administered Dose 250 mls @ as directed .ROUTE .STK-MED ONE Stop: 05/09/19 02:29 - Infant Interaction Infant Disposition, : [place] at Bedside Infant Feeding: Attempted ; Nursed Fair/Poor Support Person: Significant Other - Recovery Exam Fundal Tone: Firm Fundal Level: 1 Fingerbreadths Below Umbilicus Fundal Placement: Midline Lochia Amount: Scant Lochia Color: Rubra/Red Bladder Status: Voiding Urinary Elimination: Voided - Exam General: Alert, Oriented Neck: Supple Lungs: Clear to Auscultation, Normal Respiratory Effort Cardiovascular: Regular Rate, Regular Rhythm GI/Abdominal Exam: Soft, Non-Tender Extremities: Non-Tender Skin: Warm, Dry, Intact Neurological: No New Focal Deficit Psy/Mental Status: Alert, Normal Affect, Normal Mood - Problem List & Annotations (1) Third degree laceration of perineum during delivery, SNOMED Code(s): 495082244 Code(s): O70.20 - THIRD DEGREE PERINEAL LACERATION DURING DELIVERY, UNSP Status: Acute Current Visit: Yes (2) Vaginal delivery SNOMED Code(s): 888605745 Code(s): O80 - ENCOUNTER FOR FULL-TERM UNCOMPLICATED DELIVERY Status: Acute Current Visit: Yes - Problem List Review Problem List Initiated/Reviewed/Updated: Yes - My Orders Last 24 Hours: My Active Orders 05/11/19 12:21 Ready for Discharge [RC] PER UNIT ROUTINE - Assessment Assessment:: 24yo P1 s/p , PPD#2. - Plan Plan:: 1. 3rd degree laceration - Continue stool softener and pain medication. 2. Anemia - 2/2 acute blood loss. Repeat H&H stable. Begin twice daily oral iron supplementation. 3. Dispo - Discharge home today. Reviewed discharge instructions. All questions answered.
[2019-05-11] MEDS: Witch Hazel Medicated Pads 40/Jar TOP PRN (14:56)
== END 2019-05-11 17:10 | disposition home or self-care (01) | DRG 768 ==
LOC: MW.OB 09:31 → OBSVTOIN 05-09 09:31 → MW.OB 05-09 14:53
PROVIDERS: ADMIT Obstetrics & Gynecology; ATTEND Obstetrics & Gynecology
PROC: 10E0XZZ Delivery of Products of Conception, External Approach (ICD-10-PCS; principal; 2019-05-09)
PROC: 0DQR0ZZ Repair Anal Sphincter, Open Approach (ICD-10-PCS; 2019-05-09)
PROC: 10907ZC Drainage of Amniotic Fluid, Therapeutic from Products of Conception, Via Natural or Artificial Opening (ICD-10-PCS; 2019-05-09)
PROC: 3E0R3BZ Introduction of Anesthetic Agent into Spinal Canal, Percutaneous Approach (ICD-10-PCS; 2019-05-09)
PROC: 3E0P7VZ Introduction of Hormone into Female Reproductive, Via Natural or Artificial Opening (ICD-10-PCS; 2019-05-09)
PROC: 3E033VJ Introduction of Other Hormone into Peripheral Vein, Percutaneous Approach (ICD-10-PCS; 2019-05-09)
PROC: 10H07YZ Insertion of Other Device into Products of Conception, Via Natural or Artificial Opening (ICD-10-PCS; 2019-05-09)
PROC: 0W8NXZZ Division of Female Perineum, External Approach (ICD-10-PCS; 2019-05-09)
DX: O48.0 Post-term pregnancy (principal); Z37.0 Single live birth; O70.20 Third degree perineal laceration during delivery, unspecified; D62 Acute posthemorrhagic anemia; O76 Abnormality in fetal heart rate and rhythm complicating labor and delivery; O99.03 Anemia complicating the puerperium; O69.81X0 Labor and delivery complicated by cord around neck, without compression, not applicable or unspecified; Z79.899 Other long term (current) drug therapy; Z3A.41 41 weeks gestation of pregnancy
CPT/HCPCS: 01967; 36415; 51702; 59025; 59409; 82803; 85014; 85018; 85027; 85460; 86592; 86593; 86850; 86900; 86901; 86920; 86921; 86922; A9270-GY; J0595; J2001; J2590; J2792; J3010; J3105; J7120

== ENCOUNTER 2020-06-20 12:51 | Inpatient (IN) | payer MEDICAID ==
[2020-06-20] MEDS ORDERED: Methylergonovine 0.2 MG/1 ML Amp ONE (13:19)
[2020-06-20] MEDS ORDERED: Lidocaine 1% 50 ML MDV ONE (13:27)
--- NOTE | 2020-06-20 13:53 | PCM.LDHP ---
L&D History of Present Illness - General Date of Service: 06/20/20 Admit Problem/Dx: Admission Diagnosis/Problem Admission Diagnosis/Problem 06/20/20 13:48 presenting to L&D at 39 0/7 weeks (IMMANUEL: 06/27/20 by LMP and early ultrasound) in active labor. Upon presentation, nurse reports patient is complete and +2 with a bulging bag of carpio. O-, Rubella immune, GBS negative. Source of Information: Patient History Limitations: Reports: No Limitations - Related Data Allergies/Adverse Reactions: Allergies Allergy/AdvReac Type Severity Reaction Status Date / Time No Known Allergies Allergy Verified 05/08/19 14:36 Home Medications: Home Meds Pnv No.95/Ferrous Fum/Folic AC [ Caplet] 1 each PO DAILY 11/24/18 [History] Past Medical History - Past Health History Medical/Surgical History: Denies Medical/Surgical History HEENT History: Reports: None Cardiovascular History: Reports: None Respiratory History: Reports: None Gastrointestinal History: Reports: GERD Genitourinary History: Reports: None PROFILER History: Reports: None, Musculoskeletal History: Reports: None Neurological History: Reports: None Psychiatric History: Reports: None Endocrine/Metabolic History: Reports: None Hematologic History: Reports: Anemia Immunologic History: Reports: None Oncologic (Cancer) History: Reports: None Dermatologic History: Reports: None - Infectious Disease History Infectious Disease History: Reports: Chicken Pox - Past Surgical History Head Surgeries/Procedures: Reports: None Social & Family History - Family History Family Medical History: No Pertinent Family History - Caffeine Use Caffeine Use: Reports: None H&P Review of Systems - Review of Systems: Review Of Systems: See Below General: Reports: No Symptoms HEENT: Reports: No Symptoms Pulmonary: Reports: No Symptoms Cardiovascular: Reports: No Symptoms Gastrointestinal: Reports: No Symptoms Genitourinary: Reports: No Symptoms Musculoskeletal: Reports: No Symptoms Skin: Reports: No Symptoms Psychiatric: Reports: No Symptoms Neurological: Reports: No Symptoms Hematologic/Lymphatic: Reports: No Symptoms Immunologic: Reports: No Symptoms L&D Exam - Exam Exam: See Below - OB Specific Contraction Intensity: Moderate to Strong Movement: Active Heart Tones: Present Heart Rate (FHR) Variability: Moderate (6-25 bmp) Presentation: Vertex - Mcpherson Score Mcpherson Score Cervix Position: Midposition Mcpherson Score Consistency: Soft Mcpherson Score Effacement: >80% Mcpherson Score Dilation: > 5 cm Mcpherson Score Infant's Station: +1, +2 Mcpherson Score Total: 12 - Exam General: Alert, Oriented, Cooperative, Mild Distress Lungs: Normal Respiratory Effort Cardiovascular: Regular Rate, Regular Rhythm GI/Abdominal Exam: Soft, Non-Tender Rectal Exam: Deferred Genitourinary: Deferred Back Exam: Normal Inspection, Full Range of Motion Extremities: Normal Inspection, Normal Range of Motion, Non-Tender, No Pedal Edema, Normal Capillary Refill Skin: Warm, Dry, Intact Neurological: Strength Equal Bilateral, Normal Gait, Normal Speech, Normal Tone, Sensation Intact Psychiatric: Alert, Normal Affect, Normal Mood - Problem List (1) Supervision of normal IUP (intrauterine ) in multigravida SNOMED Code(s): 916477145, 441316751, 263519503 ICD Code: Z34.80 - ENCOUNTER FOR SUPRVSN OF NORMAL , UNSP TRIMESTER Status: Acute Priority: High Current Visit: Yes Qualifiers: Trimester: third trimester Qualified Code(s): Z34.83 - Encounter for supervision of other normal , third trimester Problem List Initiated/Reviewed/Updated: Yes Assessment/Plan Comment:: A: presenting to L&D at 39 0/7 weeks (IMMANUEL: 06/27/20 by LMP and early ultrasound) in active labor. Upon presentation, nurse reports patient is complete and +2 with a bulging bag of carpio. O-, Rubella immune, GBS negative. P: Anticipate ; Dr. Ng updated.
[2020-06-20] MEDS ORDERED: oxyCODONE 5 MG Tab PO PRN (13:55)
[2020-06-20] MEDS ORDERED: Bisacodyl 10 MG Supp RECTAL PRN (13:55)
[2020-06-20] MEDS ORDERED: Lanolin 100% Cream 7 GM Tube TOP PRN (13:55)
[2020-06-20] MEDS ORDERED: Acetaminophen 500 MG Tab PO PRN ×2 (13:55)
[2020-06-20] MEDS ORDERED: Benzocaine/Menthol 20%-0.5% Spray 78 GM Cannister TOP PRN (13:55)
[2020-06-20] MEDS ORDERED: Docusate Sodium 100 MG Cap PO PRN (13:55)
[2020-06-20] MEDS ORDERED: Ibuprofen 400 MG Tab PO PRN (13:55)
[2020-06-20] MEDS ORDERED: Witch Hazel Medicated Pads 40/Jar TOP PRN (13:55)
--- NOTE | 2020-06-20 14:03 | PCM.DEL ---
L & D Note - General Info Date of Service: 06/20/20 Mother's Due Date: 06/27/20 - Delivery Note Labor: Spontaneous Delivery Outcome: Livebirth Infant Delivery Method: Spontaneous Vaginal Delivery-Single Presentation: Vertex Nuchal Cord: Present (x1), Reduced Anesthesia Type: None Anesthetic: Lidocaine (Xylocaine) 1% Plain Local Anesthetic Volume: 5cc Amniotic Fluid Description: Clear Episiotomy Type: None Laceration: 1st Degree Suture type: Vicryl Suture size: 3-0 Cord: 3 Vessels Estimated Blood Loss: 500 : Suctioned, Bulb Syringe, Stimulated Score 1 min: 8 Score 5 min: 9 Second Stage Interventions: Reports: Second Nurse Assessed Progress of Descent, Second Nurse Reviewed Contraction Pattern, Second Nurse Reviewed Heart Tones, Encouragement Given, Pushing Effectively, Pushing, Pulls Own Legs Back Delivery Comments (Free Text/Narrative):: Patient presented to L&D in active labor, complete and +2 station with bulging bag of carpio; AROM < 5 minutes prior to delivery; viable NBM; head delivered with good pushing; loose nuchal x1, reduced; shoulders and body followed easily after; baby immediately to mom's abdomen [id number] for assessment; cord doubly clamped and cut by this provider approximately 1 minute after delivery; baby to warmer with nurse for further assessment; APGARs 8/9; weight: 9 lbs 13 oz; placenta delivered grossly intact, morrow; 3VC; EBL 500 mL; 1st degree perineal laceration repaired with 3-0 vicryl; well approximated and hemostatic; pitocin to IVF; fundus firm at one below umbilicus; scant to small lochia rubra, no clots; mom and baby left in stable condition with nurse at bedside for assessment - General Info Date of Service: 06/20/20 Admission Dx/Problem (Free Text): Admission Diagnosis/Problem Admission Diagnosis/Problem 06/20/20 13:48 presenting to L&D at 39 0/7 weeks (IMMANUEL: 06/27/20 by LMP and early ultrasound) in active labor. Upon presentation, nurse reports patient is complete and +2 with a bulging bag of carpio. O-, Rubella immune, GBS negative. Functional Status: Reports: Pain Controlled - Review of Systems General: Reports: No Symptoms HEENT: Reports: No Symptoms Pulmonary: Reports: No Symptoms Cardiovascular: Reports: No Symptoms Gastrointestinal: Reports: No Symptoms Genitourinary: Reports: No Symptoms Musculoskeletal: Reports: No Symptoms Skin: Reports: No Symptoms Neurological: Reports: No Symptoms Psychiatric: Reports: No Symptoms - Patient Data Med Orders - Current: Current Medications Discontinued Medications Lidocaine HCl (Lidocaine 1% 50 Ml Mdv) Confirm Administered Dose 50 ml .ROUTE .STK-MED ONE Stop: 06/20/20 13:28 Methylergonovine Maleate (Methylergonovine 0.2 Mg/1 Ml Amp) Confirm Administered Dose 0.2 mg .ROUTE .STK-MED ONE Stop: 06/20/20 13:20 - Exam General: Alert, Oriented, Cooperative, No Acute Distress Lungs: Normal Respiratory Effort Cardiovascular: Regular Rate, Regular Rhythm GI/Abdominal Exam: Soft, Non-Tender Back Exam: Normal Inspection, Full Range of Motion Extremities: Normal Inspection, Normal Range of Motion, Non-Tender, No Pedal Edema, Normal Capillary Refill Skin: Warm, Dry, Intact Neurological: No New Focal Deficit, Normal Speech, Normal Tone, Strength Equal Bilateral, Sensation Intact Psy/Mental Status: Alert, Normal Affect, Normal Mood - Problem List & Annotations (1) Supervision of normal IUP (intrauterine ) in multigravida SNOMED Code(s): 536793237, 041277411, 248846568 Code(s): Z34.80 - ENCOUNTER FOR SUPRVSN OF NORMAL , UNSP TRIMESTER Status: Acute Priority: High Current Visit: Yes Qualifiers: Trimester: third trimester Qualified Code(s): Z34.83 - Encounter for supervision of other normal , third trimester (2) (spontaneous vaginal delivery) SNOMED Code(s): 359179129 Code(s): O80 - ENCOUNTER FOR FULL-TERM UNCOMPLICATED DELIVERY Status: Acute Priority: High Current Visit: Yes (3) Rh negative, delivered, current hospitalization SNOMED Code(s): 746071706, 775711199 Code(s): O26.899 - OTH RELATED CONDITIONS, UNSPECIFIED TRIMESTER; Z67.91 - UNSPECIFIED BLOOD TYPE, RH NEGATIVE Status: Acute Priority: High Current Visit: Yes - Problem List Review Problem List Initiated/Reviewed/Updated: Yes - My Orders Last 24 Hours: My Active Orders 06/20/20 Lunch Regular Diet [DIET] 06/20/20 13:55 Patient Status [ADT] Routine May Shower [RC] ASDIRECTED Up ad Dorcas [RC] ASDIRECTED Vital Signs [RC] PER UNIT ROUTINE Acetaminophen [Tylenol Extra Strength] 1,000 mg PO Q4H PRN Acetaminophen [Tylenol Extra Strength] 500 mg PO Q4H PRN Benzocaine/Menthol [Dermoplast Pain Relief 20%-0.5% [place]] 78 gm TOP ASDIRECTED PRN Docusate Sodium [Colace] 100 mg PO BID PRN Ibuprofen [Motrin] 400 mg PO Q4H PRN Ibuprofen [Motrin] 800 mg PO Q6H PRN Lanolin [Lansinoh HPA] See Dose Instructions TOP ASDIRECTED PRN bisacodyL [Dulcolax] 10 mg RECTAL ONETIME PRN oxyCODONE 5 mg PO Q2H PRN witch Jabari [Tucks] 1 pad TOP ASDIRECTED PRN Assess Lochia [WOMSER] Per Unit Routine Assess Uterine Involution [WOMSER] Per Unit Routine Peripheral IV Discontinue [OM.PC] Routine Resuscitation Status Routine 06/21/20 05:11 HEMOGLOBIN/HEMATOCRIT,HH [HEME] Timed - Plan Plan:: A: presenting to L&D at 39 0/7 weeks (IMMANUEL: 06/27/20 by LMP and early ultrasound) in active labor. Upon presentation, nurse reports patient is complete and +2 with a bulging bag of carpio. O-, Rubella immune, GBS negative. P: Anticipate ; Dr. Ng updated. A: viable NBM; loose nuchal x1, reduced; cord doubly clamped and cut by this provider approximately 1 minute after delivery; baby to warmer with nurse for further assessment; APGARs 8/9; weight: 9 lbs 13 oz; placenta delivered grossly intact, morrow; 3VC; EBL 500 mL; 1st degree perineal laceration repaired with 3-0 vicryl; well approximated and hemostatic; pitocin to IVF; fundus firm at one below umbilicus; scant to small lochia rubra, no clots; mom and baby left in stable condition with nurse at bedside for assessment P: Routine plan of care; Dr. Ng updated.
--- NOTE | 2020-06-21 07:36 | PCM.DCSUM1 ---
Discharge Summary - Hospital Course Free Text/Narrative:: Discharge home with baby. Follow up in the clinic in 6 weeks for routine visit; sooner, if needed. Diagnosis: Stroke: No Modified Ryan Scale: No Symptoms at All Modified Ryan Scale Score: 0 - Discharge Data Discharge Date: 06/21/20 Discharge Disposition: Home, Self-Care 01 Condition: Good - Referral to Home Health Primary Care Physician: PCP None - Discharge Diagnosis/Problem(s) (1) Supervision of normal IUP (intrauterine ) in multigravida SNOMED Code(s): 398424872, 008546859, 680034974 ICD Code: Z34.80 - ENCOUNTER FOR SUPRVSN OF NORMAL , UNSP TRIMESTER Status: Acute Priority: High Current Visit: Yes Qualifiers: Trimester: third trimester Qualified Code(s): Z34.83 - Encounter for supervision of other normal , third trimester (2) (spontaneous vaginal delivery) SNOMED Code(s): 379864400 ICD Code: O80 - ENCOUNTER FOR FULL-TERM UNCOMPLICATED DELIVERY Status: Acute Priority: High Current Visit: Yes (3) Rh negative, delivered, current hospitalization SNOMED Code(s): 468072600, 705963723 ICD Code: O26.899 - OTH RELATED CONDITIONS, UNSPECIFIED TRIMESTER; Z67.91 - UNSPECIFIED BLOOD TYPE, RH NEGATIVE Status: Acute Priority: High Current Visit: Yes - Patient Instructions Diet: Regular Diet as Tolerated, Drink 8-10+ Glasses/Day Activity: As Tolerated, No Strenuous Activities, Rest and Relax Today Driving: May Drive Today Showering/Bathing: May Shower Notify Provider of: Fever, Increased Pain, Swelling and Redness, Drainage, Nausea and/or Vomiting - Discharge Plan *PRESCRIPTION DRUG MONITORING PROGRAM REVIEWED*: Not Applicable *COPY OF PRESCRIPTION DRUG MONITORING REPORT IN PATIENT BRIDGET: Not Applicable Prescriptions/Med Rec: Ferrous Sulfate 325 mg PO DAILY #30 tablet Ibuprofen [Motrin] 800 mg PO Q6H PRN #90 tablet PRN Reason: Pain Home Medications: Home Meds Pnv No.95/Ferrous Fum/Folic AC [ Caplet] 1 each PO DAILY 11/24/18 [History] Ferrous Sulfate 325 mg PO DAILY #30 tablet 06/21/20 [Rx] Ibuprofen [Motrin] 800 mg PO Q6H PRN #90 tablet 06/21/20 [Rx] Oxygen Therapy Mode: Room Air - Discharge Summary/Plan Comment DC Time >30 min.: Yes - General Info Date of Service: 06/21/20 Admission Dx/Problem (Free Text: Admission Diagnosis/Problem Admission Diagnosis/Problem 06/20/20 13:48 presenting to L&D at 39 0/7 weeks (IMMANUEL: 06/27/20 by LMP and early ultrasound) in active labor. Upon presentation, nurse reports patient is complete and +2 with a bulging bag of carpio. O-, Rubella immune, GBS negative. Functional Status: Reports: Pain Controlled, Tolerating Diet, Ambulating, Urinating - Review of Systems General: Reports: No Symptoms HEENT: Reports: No Symptoms Pulmonary: Reports: No Symptoms Cardiovascular: Reports: No Symptoms Gastrointestinal: Reports: No Symptoms Genitourinary: Reports: No Symptoms Musculoskeletal: Reports: No Symptoms Skin: Reports: No Symptoms Neurological: Reports: No Symptoms Psychiatric: Reports: No Symptoms - Patient Data Vitals - Most Recent: Last Vital Signs Temp 97.5 F 06/21/20 04:07 Pulse 90 06/21/20 04:07 Resp 16 06/21/20 04:07 BP 121/67 06/21/20 04:07 Pulse Ox 99 06/21/20 04:07 Weight - Most Recent: 164 lb Lab Results - Last 24 hrs: Laboratory Results - last 24 hr 06/20/20 06/20/20 06/20/20 Range/Units 14:28 15:14 15:14 WBC 17.29 H (4.0-11.0) K/uL RBC 4.53 (4.30-5.90) M/uL Hgb 8.9 L (12.0-16.0) g/dL Hct 31.0 L (36.0-46.0) % MCV 68.4 L (80.0-98.0) fL MCH 19.6 L (27.0-32.0) pg MCHC 28.7 L (31.0-37.0) g/dL RDW Std Deviation 49.5 (28.0-62.0) fl RDW Coeff of Aquiles 20 H (11.0-15.0) % Plt Count 217 (150-400) K/uL Nucleated RBC % 0.4 /100WBC Nucleated RBCs # 0 K/uL SARS-CoV-2 RNA (HOOD) NEGATIVE (NEGATIVE) Blood Type O NEGATIVE Antibody Screen NEGATIVE 06/21/20 Range/Units 06:00 WBC (4.0-11.0) K/uL RBC (4.30-5.90) M/uL Hgb 7.8 L (12.0-16.0) g/dL Hct 26.7 L (36.0-46.0) % MCV (80.0-98.0) fL MCH (27.0-32.0) pg MCHC (31.0-37.0) g/dL RDW Std Deviation (28.0-62.0) fl RDW Coeff of Aquiles (11.0-15.0) % Plt Count (150-400) K/uL Nucleated RBC % /100WBC Nucleated RBCs # K/uL SARS-CoV-2 RNA (HOOD) (NEGATIVE) Blood Type Antibody Screen Med Orders - Current: Current Medications Acetaminophen (Acetaminophen 500 Mg Tab) 500 mg PO Q4H PRN PRN Reason: Pain Acetaminophen (Acetaminophen 500 Mg Tab) 1,000 mg PO Q4H PRN PRN Reason: Pain Last Admin: 06/21/20 04:05 Dose: 1,000 mg Documented by: Benzocaine/Menthol (Benzocaine/Menthol 20%-0.5% [place] 78 Gm Cannister) 78 gm TOP ASDIRECTED PRN PRN Reason: Perineal Comfort Measure Last Admin: 06/20/20 15:56 Dose: 1 canister Documented by: Bisacodyl (Bisacodyl 10 Mg Supp) 10 mg RECTAL ONETIME PRN PRN Reason: Constipation Docusate Sodium (Docusate Sodium 100 Mg Cap) 100 mg PO BID PRN PRN Reason: Constipation Last Admin: 06/20/20 15:57 Dose: 100 mg Documented by: Emollient Ointment (Lanolin 100% Cream 7 Gm Tube) 0 gm TOP ASDIRECTED PRN PRN Reason: Sore Nipples Last Admin: 06/20/20 15:57 Dose: 1 tube Documented by: Ibuprofen (Ibuprofen 400 Mg Tab) 400 mg PO Q4H PRN PRN Reason: Pain Ibuprofen (Ibuprofen 800 Mg Tab) 800 mg PO Q6H PRN PRN Reason: Pain Oxycodone HCl (Oxycodone 5 Mg Tab) 5 mg PO Q2H PRN PRN Reason: Pain Witch Anne (Witch Anne Medicated Pads 40/Jar) 1 pad TOP ASDIRECTED PRN PRN Reason: comfort care Last Admin: 06/20/20 15:56 Dose: 1 pad Documented by: Discontinued Medications Lidocaine HCl (Lidocaine 1% 50 Ml Mdv) Confirm Administered Dose 50 ml .ROUTE .[employer]MED ONE Stop: 06/20/20 13:28 Last Admin: 06/20/20 13:30 Dose: 50 ml Documented by: Methylergonovine Maleate (Methylergonovine 0.2 Mg/1 Ml Amp) Confirm Administered Dose 0.2 mg .ROUTE .[employer] ONE Stop: 06/20/20 13:20 Last Admin: 06/20/20 15:47 Dose: 0.2 mg Documented by: - Exam General: Reports: Alert, Oriented, Cooperative, No Acute Distress Lungs: Reports: Normal Respiratory Effort Cardiovascular: Reports: Regular Rate, Regular Rhythm GI/Abdominal Exam: Soft, Non-Tender (Female) Exam: Deferred Rectal (Female) Exam: Deferred Back Exam: Reports: Normal Inspection, Full Range of Motion Extremities: Normal Inspection, Normal Range of Motion, Non-Tender, No Pedal Edema, Normal Capillary Refill Skin: Reports: Warm, Dry, Intact Neurological: Reports: No New Focal Deficit, Normal Speech, Normal Tone, Strength Equal Bilateral, Sensation Intact Psy/Mental Status: Reports: Alert, Normal Affect, Normal Mood
[2020-06-21] MEDS: Ibuprofen 800 MG Tab PO PRN ×2 (08:14→17:36)
== END 2020-06-21 22:10 | disposition home or self-care (01) | DRG 807 ==
LOC: MW.OBCHECK 12:51 → MW.OB 12:51 → OBSVTOIN 13:55 → MW.OBCHECK 13:55 → MW.OB 18:04
PROVIDERS: ADMIT Obstetrics & Gynecology; ATTEND Obstetrics & Gynecology
PROC: 10E0XZZ Delivery of Products of Conception, External Approach (ICD-10-PCS; principal; 2020-06-20)
PROC: 0HQ9XZZ Repair Perineum Skin, External Approach (ICD-10-PCS; 2020-06-20)
DX: O69.81X0 Labor and delivery complicated by cord around neck, without compression, not applicable or unspecified (principal); Z37.0 Single live birth; Z3A.39 39 weeks gestation of pregnancy; O70.0 First degree perineal laceration during delivery; Z20.822 Contact with and (suspected) exposure to COVID-19
CPT/HCPCS: 36415; 59025; 59409; 85014; 85018; 85027; 86592; 86850; 86900; 86901; A9270-GY; J2001; J2210; U0002

== ENCOUNTER 2023-03-12 09:57 | Inpatient (IN) | payer MEDICAID ==
[2023-03-12] MEDS ORDERED: Methylergonovine 0.2 MG/1 ML Amp IM PRN (11:06)
[2023-03-12] MEDS ORDERED: Sodium Chloride 0.9% 2.5 ML Syringe FLUSH PRN (11:06)
[2023-03-12] MEDS ORDERED: Sodium Chloride 0.9% 10 ML Syringe FLUSH PRN (11:06)
[2023-03-12] MEDS ORDERED: Water For Irrigation,Sterile 1,000 ML Container IRR PRN (11:06)
[2023-03-12] MEDS ORDERED: Butorphanol 1 MG/ML SDV IVPUSH PRN (11:06)
[2023-03-12] MEDS ORDERED: Lidocaine 1% 50 ML MDV INJECT PRN (11:06)
[2023-03-12] MEDS ORDERED: Carboprost Tromethamine 250 MCG/1 mL Vial IM PRN (11:06)
[2023-03-12] MEDS ORDERED: Misoprostol 200 MCG Tab PO PRN (11:06)
[2023-03-12] MEDS ORDERED: Tranexamic Acid IN NACL,ISO-OS 1,000 MG in Premix Bag 1 BAG IV PRN ×2 (11:06)
[2023-03-12] MEDS ORDERED: Sodium Chloride 0.9% 20 ML SDV IV PRN (11:06)
[2023-03-12] MEDS ORDERED: Oxytocin/0.9 % Sodium Chloride 30 UNIT/500 ML BAG IV SCH (11:15)
[2023-03-12] MEDS ORDERED: Lactated Ringers 1,000 ML IV SCH (11:15)
[2023-03-12 11:29] LABS: HEMATOCRIT 42.1 % (37.0-47.0); HEMOGLOBIN 14.6 g/dL (12.0-16.0); MEAN CORPUSCULAR HEMOGLOBIN 31.9 pg (28.0-32.0); MEAN CORPUSCULAR HGB CONC 34.7 g/dL (32.0-36.0); MEAN CORPUSCULAR VOLUME 92.1 fL (83.0-99.0); PLATELET COUNT,PLT 156 K/uL (150-400); RED BLOOD CELL COUNT 4.57 M/uL (4.10-5.30)
[2023-03-12] MEDS ORDERED: Docusate Sodium 100 MG Cap PO PRN (18:14)
[2023-03-12] MEDS ORDERED: Benzocaine/Menthol 20%-0.5% Spray 78 GM Cannister TOP PRN (18:14)
[2023-03-12] MEDS ORDERED: Witch Hazel Medicated Pads 40/Jar TOP PRN (18:14)
[2023-03-12] MEDS ORDERED: Lanolin 100% Cream 7 GM Tube TOP PRN (18:14)
[2023-03-12] MEDS ORDERED: Acetaminophen 500 MG Tab PO PRN (18:14)
[2023-03-12] MEDS: Ibuprofen 800 MG Tab PO PRN (18:25)
[2023-03-13 06:14] LABS: HEMATOCRIT 31.2 % (37.0-47.0)
[2023-03-13] MEDS: Ibuprofen 800 MG Tab PO PRN ×2 (08:42→17:21)
== END 2023-03-13 17:30 | disposition home or self-care (01) | DRG 807 ==
LOC: MW.OBCHECK 09:57 → MW.OB 09:59 → MW.OBCHECK 14:10 → MW.OB 14:11 → OBSVTOIN 14:30 → MW.OB 20:48
PROVIDERS: ADMIT Obstetrics & Gynecology Obstetrics; ATTEND Obstetrics & Gynecology Obstetrics
PROC: 10E0XZZ Delivery of Products of Conception, External Approach (ICD-10-PCS; principal; 2023-03-12)
PROC: 3E0334Z Introduction of Serum, Toxoid and Vaccine into Peripheral Vein, Percutaneous Approach (ICD-10-PCS; 2023-03-12)
DX: O26.893 Other specified pregnancy related conditions, third trimester (principal); Z37.0 Single live birth; Z67.41 Type O blood, Rh negative; Z3A.39 39 weeks gestation of pregnancy; O24.113 Pre-existing type 2 diabetes mellitus, in pregnancy, third trimester; O70.0 First degree perineal laceration during delivery
CPT/HCPCS: 36415; 59025; 59409; 84112; 85014; 85018; 85027; 85460; 86592; 86850; 86900; 86901; A9270-GY; J2590; J2790; J7120

== ENCOUNTER 2023-03-16 12:47 | Emergency (ER) | payer MEDICAID ==
[2023-03-16] MEDS ORDERED: Sodium Chloride 0.9% 1,000 ML IV STA (12:58)
[2023-03-16] MEDS ORDERED: Acetaminophen 500 MG Tab PO STA (13:16)
[2023-03-16 13:25] LABS: BASOPHILS ABSOLUTE AUTO 0.05 K/uL (0.00-0.20); BASOPHILS PERCENT AUTO 0.4 % (0.0-1.0); EOSINOPHILS ABSOLUTE AUTO 0.08 K/uL (0.00-0.45); EOSINOPHILS PERCENT AUTO 0.6 % (0.0-6.0); HEMATOCRIT 34.5 % (37.0-47.0); IMMATURE GRAN ABSOLUTE AUTO 0.13 K/uL (0.00-0.05); LYMPHOCYTES ABSOLUTE AUTO 2.06 K/uL (1.00-4.80); LYMPHOCYTES PERCENT AUTO 15.8 % (24.0-44.0); MEAN CORPUSCULAR HEMOGLOBIN 32.7 pg (28.0-32.0); MEAN CORPUSCULAR HGB CONC 34.8 g/dL (32.0-36.0); MEAN PLATELET VOLUME 9.5 fL (9.4-12.3); MONOCYTES ABSOLUTE AUTO 0.71 K/uL (0.00-0.80); MONOCYTES PERCENT AUTO 5.5 % (0.0-8.0); NEUTROPHILS ABSOLUTE AUTO 9.97 K/uL (1.80-7.70); NEUTROPHILS PERCENT AUTO 76.7 % (41.0-71.0); NRBC ABSOLUTE 0.05 K/uL (0.00-0.02); NRBC PERCENT 0.4 /100WBC (0.0-0.2); PLATELET COUNT,PLT 208 K/uL (150-400); RED BLOOD CELL COUNT 3.67 M/uL (4.10-5.30)
[2023-03-16 13:48] LABS: ALBUMIN 2.6 g/dL (3.4-5.0); BILIRUBIN TOTAL 0.3 mg/dL (0.2-1.0); CALCIUM 9.1 mg/dL (8.5-10.1); CARBON DIOXIDE,CO2 25.3 mmol/L (21.0-32.0); CREATININE 0.6 mg/dL (0.6-1.0); EST CRCL DRUG DOSING (CG) 131.85 mL/min; POTASSIUM,K 3.7 mmol/L (3.5-5.1); PROTEIN TOTAL,TP 6.6 g/dL (6.4-8.2)
[2023-03-16 13:50] LABS: A/G RATIO 0.7 (0.9-1.6)
[2023-03-16 13:53] LABS: APPEARANCE,URINE CLEAR; BILIRUBIN,URINE NEGATIVE (NEGATIVE); COLOR,URINE YELLOW; GLUCOSE,URINE NEGATIVE (NEGATIVE); KETONES,URINE NEGATIVE (NEGATIVE); LEUKOCYTE ESTERASE,URINE NEGATIVE (NEGATIVE); NITRITE,URINE NEGATIVE (NEGATIVE); OCCULT BLOOD,URINE SMALL (NEGATIVE); PH,URINE 5.5 (5.0-8.0); PROTEIN,URINE NEGATIVE (NEGATIVE); UROBILINOGEN,URINE 0.2 EU/dL (<2.0)
[2023-03-16 14:00] LABS: BACTERIA,URINE FEW (NEGATIVE); EPITHELIAL CELLS,URINE OCCASIONAL (NONE-FEW); MUCUS,URINE LIGHT (NONE-MOD); RBC,URINE 0-2 (0-2/HPF); WBC,URINE 0-2 (0-5/HPF)
[2023-03-16 14:55] LABS: CANDIDA DNA PROBE NEGATIVE (NEGATIVE); GARDNERELLA DNA PROBE NEGATIVE (NEGATIVE); TRICHOMONAS DNA PROBE NEGATIVE (NEGATIVE)
== END 2023-03-16 16:28 | disposition home or self-care (01) ==
LOC: MW.ED 12:47
DX: O34.593 Maternal care for other abnormalities of gravid uterus, third trimester (principal); N85.00 Endometrial hyperplasia, unspecified
CPT/HCPCS: 36415; 76857; 80053; 81001; 85025; 86850; 86900; 86901; 87480; 87510; 87660; 96360; 99284; A9270; J7030; 99283